=== PATIENT | male | born 1990 | race Caucasian/White ===

== ENCOUNTER 2017-03-02 22:13 | Emergency (ER) | payer MEDICAID, OTHER ==
[~2017-03-02] VITALS: Ht 170.2 cm; Wt 95.3 kg
[2017-03-03 02:18] VITALS: BP 144/90
== END 2017-03-03 03:15 | disposition home or self-care (01) ==
LOC: ER 22:13
DX: S00.83XA Contusion of other part of head, initial encounter (principal); W22.8XXA Striking against or struck by other objects, initial encounter; Y93.89 Activity, other specified; Y99.8 Other external cause status; Y92.89 Other specified places as the place of occurrence of the external cause
CPT/HCPCS: 70450; 82962

== ENCOUNTER 2019-01-27 16:35 | Emergency (ER) | payer SELFPAY ==
[~2019-01-27] VITALS: Ht 172.7 cm; Wt 93.0 kg
[2019-01-27 16:53] VITALS: BP 152/98
[2019-01-27] MEDS ORDERED: KETOROLAC TROMETH 60MG/2ML VIAL IM ONE (19:00)
[2019-01-27] MEDS ORDERED: ONDANSETRON ODT 4 MG TAB PO ONE (19:00)
== END 2019-01-27 20:15 | disposition home or self-care (01) ==
LOC: ER 16:43
DX: S06.0X0A Concussion without loss of consciousness, initial encounter (principal); W22.8XXA Striking against or struck by other objects, initial encounter; Y93.89 Activity, other specified; Y99.9 Unspecified external cause status; Y92.69 Other specified industrial and construction area as the place of occurrence of the external cause
CPT/HCPCS: 70450; 96372; 99284; J1885; Q0162

== ENCOUNTER 2019-01-28 15:00 | Emergency (ER) | payer MEDICAID, OTHER ==
[~2019-01-28] VITALS: Ht 170.2 cm; Wt 93.0 kg
[2019-01-28 16:10] VITALS: BP 133/88
== END 2019-01-28 18:08 | disposition home or self-care (01) ==
LOC: ER 15:04
DX: R42 Dizziness and giddiness (principal)
CPT/HCPCS: 93005